=== PATIENT | female | born 1930 | race African-American/Black ===

== ENCOUNTER 2017-03-12 17:55 | Inpatient (IN) ==
[2017-03-12] MEDS ORDERED: ACETAMINOPHEN 325 MG TABLET PO PRN (19:10)
[2017-03-12] MEDS ORDERED: ONDANSETRON 4 MG/2 ML VIAL IV PRN (19:10)
[2017-03-12] MEDS ORDERED: MORPHINE 2 MG/1 ML SYRINGE IV PRN (19:10)
[2017-03-12] MEDS ORDERED: MAGNESIUM HYDROXIDE SUSP 30 ML UDCUP PO PRN (19:10)
[2017-03-12 20:36] LABS: Basophils % 0.4 % (0.0-0.8); Eosinophils # 0.2 10*3/uL (0.0-0.87); Hematocrit 35.1 VOL% (35.7-47.0); Hemoglobin 11.7 GM/DL (12.0-16.0); Immature Granulocytes % 1.2 %; Immature Granulocytes Absolute 0.13 #; Lymphocytes # 2.5 10*3/uL (1.4-4.0); Mean Corpuscular HGB Conc 33.3 GM/DL (32-36); Mean Corpuscular Hemoglobin 30 PG (27-34); Mean Corpuscular Volume 90.7 FL (87-102); Mean Platelet Volume 10.1 FL (9.6-12.0); Monocytes # 1.2 10*3/uL (0.11-0.8); Monocytes % 10.9 % (1.7-12.7); Neutrophils # 6.8 10*3/uL (1.4-7.4); Neutrophils % 62.5 % (38.7-73.9); Platelet Count 372 T/CUMM (130-400); Red Blood Count 3.87 MC/CUMM (3.8-5.5); Red Cell Distribution Width 18.7 % (9.3-17.3); White Blood Count 10.9 T/CUMM (4-12)
[2017-03-12] MEDS: SODIUM CHLORIDE 0.45% 1,000 ML IV SCH (20:47)
[2017-03-12] MEDS: CLINDAMYCIN INJ 600 MG in PREMIX 1 EACH IV SCH (20:51)
[2017-03-12] MEDS: FAMOTIDINE 20 MG TABLET PO SCH (20:52)
[2017-03-12] MEDS: DOCUSATE SODIUM 100 MG CAPSULE PO SCH (20:52)
[2017-03-12] MEDS: MIRTAZAPINE 30 MG TABLET PO SCH (20:52)
[2017-03-12] MEDS: ENOXAPARIN 30 MG/0.3 ML SYRINGE SUBCUT SCH (20:52)
[2017-03-12] MEDS: URSODIOL 300 MG CAPSULE PO SCH (20:52)
[2017-03-12 21:11] LABS: Albumin 2.6 G/DL (3.4-5.0); Bilirubin,Total 0.5 MG/DL (0.2-1.0); Calcium 8.9 MG/DL (8.5-10.1); Osmolality,Calculated 285.2 MOS/KG (273-304); Potassium 4.1 MMOL/L (3.5-5.1); Total Protein 6.3 G/DL (6.4-8.3)
[2017-03-13] MEDS: ALBUTEROL/IPRATROPIUM 3 ML NEB RESP TX SCH ×4 (00:10→19:40)
[2017-03-13] MEDS: CLINDAMYCIN INJ 600 MG in PREMIX 1 EACH IV SCH ×3 (04:05→20:44)
[2017-03-13 05:20] LABS: Apearance,Urine CLEAR (Clear); Bilirubin,Urine Negative (Negative); Blood, Urine Negative (Negative); Glucose,Urine (UA) Negative (Negative); Hyaline Casts,Urine 1 /LPF (0-3); Ketones,Urine Negative (Negative); Nitrite,Urine Negative (Negative); Protein,Urine Negative; RBC,Urine 1 /HPF (0-4); Urine Color Yellow (Yellow); Urine Urobilinogen < 2.0 EU/DL (0.2-1.0); WBC,Urine <1 /HPF (0-6)
[2017-03-13 07:04] LABS: Basophils % 0.4 % (0.0-0.8); Eosinophils # 0.2 10*3/uL (0.0-0.87); Eosinophils % 2.4 % (0.00-10.9); Hematocrit 36.9 VOL% (35.7-47.0); Hemoglobin 12.1 GM/DL (12.0-16.0); Immature Granulocytes % 1.2 %; Immature Granulocytes Absolute 0.09 #; Lymphocytes # 1.9 10*3/uL (1.4-4.0); Lymphocytes % 25.5 % (21.3-54.2); Mean Corpuscular HGB Conc 32.8 GM/DL (32-36); Mean Corpuscular Hemoglobin 30 PG (27-34); Mean Corpuscular Volume 91.8 FL (87-102); Mean Platelet Volume 10.6 FL (9.6-12.0); Monocytes # 0.9 10*3/uL (0.11-0.8); Monocytes % 12.3 % (1.7-12.7); Neutrophils # 4.4 10*3/uL (1.4-7.4); Neutrophils % 58.2 % (38.7-73.9); Platelet Count 242 T/CUMM (130-400); Red Blood Count 4.02 MC/CUMM (3.8-5.5); Red Cell Distribution Width 18.7 % (9.3-17.3); White Blood Count 7.6 T/CUMM (4-12)
[2017-03-13 07:34] LABS: Albumin 2.3 G/DL (3.4-5.0); Bilirubin,Total 0.4 MG/DL (0.2-1.0); Calcium 8.6 MG/DL (8.5-10.1); Osmolality,Calculated 283.2 MOS/KG (273-304); Potassium 3.9 MMOL/L (3.5-5.1); Risk Ratio 15.06; VLDL CHOLESTEROL 41.2 MG/DL
[2017-03-13] MEDS ORDERED: ATORVASTATIN 40 MG TABLET PO SCH (09:00)
[2017-03-13] MEDS: SODIUM CHLORIDE 0.9% 1,000 ML IV SCH (10:30)
[2017-03-13] MEDS: SODIUM CHLORIDE 0.45% 1,000 ML IV SCH (10:31)
[2017-03-13] MEDS: URSODIOL 300 MG CAPSULE PO SCH ×2 (15:09→20:46)
[2017-03-13] MEDS: FAMOTIDINE 20 MG TABLET PO SCH ×2 (15:10→20:46)
[2017-03-13] MEDS: amLODIPine 5 MG TABLET PO SCH (15:10)
[2017-03-13] MEDS: DOCUSATE SODIUM 100 MG CAPSULE PO SCH ×2 (15:10→20:45)
[2017-03-13] MEDS: METOPROLOL TARTRATE 25 MG TABLET PO SCH ×2 (15:12→20:46)
[2017-03-13] MEDS: FENOFIBRATE 160 MG TABLET PO SCH (15:12)
[2017-03-13] MEDS: SODIUM HYPOCHLORITE 0.25% IRRIG 473 ML BOTTLE TOP SCH (16:25)
[2017-03-13] MEDS: MIRTAZAPINE 30 MG TABLET PO SCH (20:46)
[2017-03-13] MEDS: ENOXAPARIN 30 MG/0.3 ML SYRINGE SUBCUT SCH (20:46)
[2017-03-13] MEDS: ROSUVASTATIN 10 MG TABLET PO SCH (20:48)
[2017-03-13] MEDS ORDERED: methylPREDNISolone SOD SUC 40 MG/1 ML VIAL IV ONE (21:42)
[2017-03-13] MEDS ORDERED: FUROSEMIDE 40 MG/4 ML VIAL IV ONE (21:51)
[2017-03-14] MEDS: BUDESONIDE 0.25 MG/2 ML NEB RESP TX SCH ×3 (00:15→19:34)
[2017-03-14] MEDS: ALBUTEROL/IPRATROPIUM 3 ML NEB RESP TX SCH ×4 (00:15→19:34)
[2017-03-14] MEDS: SODIUM CHLORIDE 0.9% 1,000 ML IV SCH ×2 (01:42→23:38)
[2017-03-14] MEDS: CLINDAMYCIN INJ 600 MG in PREMIX 1 EACH IV SCH ×3 (04:01→19:51)
[2017-03-14] MEDS: methylPREDNISolone SOD SUC 40 MG/1 ML VIAL IV SCH ×3 (05:27→21:10)
[2017-03-14 05:52] LABS: Basophils % 0.1 % (0.0-0.8); Hematocrit 33.2 VOL% (35.7-47.0); Hemoglobin 10.9 GM/DL (12.0-16.0); Immature Granulocytes Absolute 0.07 #; Lymphocytes # 1.1 10*3/uL (1.4-4.0); Lymphocytes % 15.3 % (21.3-54.2); Mean Corpuscular HGB Conc 32.8 GM/DL (32-36); Mean Corpuscular Hemoglobin 30 PG (27-34); Mean Corpuscular Volume 91.7 FL (87-102); Mean Platelet Volume 10.3 FL (9.6-12.0); Monocytes # 0.1 10*3/uL (0.11-0.8); Neutrophils # 5.6 10*3/uL (1.4-7.4); Neutrophils % 81.6 % (38.7-73.9); Platelet Count 326 T/CUMM (130-400); Red Blood Count 3.62 MC/CUMM (3.8-5.5); Red Cell Distribution Width 18.9 % (9.3-17.3); White Blood Count 6.9 T/CUMM (4-12)
[2017-03-14 06:22] LABS: Giant Platelets Few; Hypochromasia Slight; Ovalocytes Slight; Platelet Estimate Adequate
[2017-03-14 06:28] LABS: Calcium 7.9 MG/DL (8.5-10.1); Potassium 4.2 MMOL/L (3.5-5.1)
[2017-03-14] MEDS: METOPROLOL TARTRATE 25 MG TABLET PO SCH ×2 (08:42→21:09)
[2017-03-14] MEDS: DOCUSATE SODIUM 100 MG CAPSULE PO SCH ×2 (08:42→21:10)
[2017-03-14] MEDS: amLODIPine 5 MG TABLET PO SCH (08:42)
[2017-03-14] MEDS: URSODIOL 300 MG CAPSULE PO SCH ×2 (08:42→21:09)
[2017-03-14] MEDS: FENOFIBRATE 160 MG TABLET PO SCH (08:42)
[2017-03-14] MEDS: FUROSEMIDE 20 MG/2 ML VIAL IV SCH (08:42)
[2017-03-14] MEDS: FAMOTIDINE 20 MG TABLET PO SCH ×2 (08:42→21:09)
[2017-03-14] MEDS: SODIUM HYPOCHLORITE 0.25% IRRIG 473 ML BOTTLE TOP SCH (14:54)
[2017-03-14] MEDS: SKIN HEALING OINT (AQUAPHOR) 50 GM TUBE TOP SCH (14:54)
[2017-03-14] MEDS: COLLAGENASE OINT 30 GM TUBE TOP SCH (15:21)
[2017-03-14] MEDS: ENOXAPARIN 30 MG/0.3 ML SYRINGE SUBCUT SCH (21:10)
[2017-03-14] MEDS: ROSUVASTATIN 10 MG TABLET PO SCH (21:10)
[2017-03-14] MEDS: MIRTAZAPINE 30 MG TABLET PO SCH (21:12)
[2017-03-15] MEDS: traMADol 50 MG TABLET PO PRN ×2 (00:20→21:18)
[2017-03-15] MEDS: ALBUTEROL/IPRATROPIUM 3 ML NEB RESP TX SCH ×4 (01:00→19:17)
[2017-03-15] MEDS: CLINDAMYCIN INJ 600 MG in PREMIX 1 EACH IV SCH ×2 (03:50→13:26)
[2017-03-15] MEDS: methylPREDNISolone SOD SUC 40 MG/1 ML VIAL IV SCH ×3 (06:50→21:19)
[2017-03-15] MEDS: SODIUM CHLORIDE 0.9% 1,000 ML IV SCH ×2 (06:51→16:41)
[2017-03-15 06:59] LABS: Basophils % 0.1 % (0.0-0.8); Hematocrit 34.5 VOL% (35.7-47.0); Hemoglobin 11.5 GM/DL (12.0-16.0); Immature Granulocytes % 2.3 %; Immature Granulocytes Absolute 0.19 #; Lymphocytes # 1.3 10*3/uL (1.4-4.0); Mean Corpuscular HGB Conc 33.3 GM/DL (32-36); Mean Corpuscular Hemoglobin 30 PG (27-34); Mean Corpuscular Volume 90.8 FL (87-102); Monocytes # 0.5 10*3/uL (0.11-0.8); Monocytes % 6.4 % (1.7-12.7); NRBC # 0.02 10*3/uL; Neutrophils # 6.2 10*3/uL (1.4-7.4); Neutrophils % 75.2 % (38.7-73.9); Platelet Count 324 T/CUMM (130-400); Red Cell Distribution Width 18.6 % (9.3-17.3); White Blood Count 8.3 T/CUMM (4-12)
[2017-03-15] MEDS: BUDESONIDE 0.25 MG/2 ML NEB RESP TX SCH ×2 (07:28→19:17)
[2017-03-15 07:40] LABS: Osmolality,Calculated 293.5 MOS/KG (273-304); Potassium 4.2 MMOL/L (3.5-5.1)
[2017-03-15] MEDS: amLODIPine 5 MG TABLET PO SCH (09:45)
[2017-03-15] MEDS: URSODIOL 300 MG CAPSULE PO SCH ×2 (09:45→21:17)
[2017-03-15] MEDS: FUROSEMIDE 20 MG/2 ML VIAL IV SCH (09:45)
[2017-03-15] MEDS: METOPROLOL TARTRATE 25 MG TABLET PO SCH ×2 (09:45→21:18)
[2017-03-15] MEDS: FAMOTIDINE 20 MG TABLET PO SCH ×2 (09:45→21:18)
[2017-03-15] MEDS: SODIUM HYPOCHLORITE 0.25% IRRIG 473 ML BOTTLE TOP SCH (09:46)
[2017-03-15] MEDS: SKIN HEALING OINT (AQUAPHOR) 50 GM TUBE TOP SCH (09:46)
[2017-03-15] MEDS: DOCUSATE SODIUM 100 MG CAPSULE PO SCH ×2 (09:46→21:17)
[2017-03-15] MEDS: FENOFIBRATE 160 MG TABLET PO SCH (09:46)
[2017-03-15] MEDS: COLLAGENASE OINT 30 GM TUBE TOP SCH (09:49)
[2017-03-15] MEDS ORDERED: cloNIDine 0.1 MG TABLET PO PRN (12:49)
[2017-03-15] MEDS ORDERED: ALBUTEROL 2.5 MG/3 ML NEB RESP TX PRN (12:49)
[2017-03-15] MEDS ORDERED: LUBIPROSTONE 24 MCG CAPSULE PO PRN (12:49)
[2017-03-15] MEDS: hydrALAZINE 25 MG TABLET PO SCH ×2 (14:16→21:18)
[2017-03-15] MEDS ORDERED: CALAMINE LOTION 180 ML BOTTLE TOP SCH (21:00)
[2017-03-15] MEDS: SULFAMETHOX/TRIMETHOPRIM 800-160 MG TABLET PO SCH (21:17)
[2017-03-15] MEDS: GABAPENTIN 100 MG CAPSULE PO SCH ×2 (21:17→21:19)
[2017-03-15] MEDS: ENOXAPARIN 30 MG/0.3 ML SYRINGE SUBCUT SCH (21:17)
[2017-03-15] MEDS: MIRTAZAPINE 30 MG TABLET PO SCH (21:17)
[2017-03-15] MEDS: ROSUVASTATIN 10 MG TABLET PO SCH (21:17)
[2017-03-15] MEDS: CIPROFLOXACIN 500 MG TABLET PO SCH (21:18)
[2017-03-15] MEDS: CALAMINE LOTION 180 ML BOTTLE TOP SCH (21:22)
[2017-03-16] MEDS: ALBUTEROL/IPRATROPIUM 3 ML NEB RESP TX SCH ×4 (00:30→19:50)
[2017-03-16] MEDS: SODIUM CHLORIDE 0.9% 1,000 ML IV SCH ×2 (06:30→19:03)
[2017-03-16] MEDS: methylPREDNISolone SOD SUC 40 MG/1 ML VIAL IV SCH ×3 (06:31→23:00)
[2017-03-16 07:38] LABS: Calcium 8.6 MG/DL (8.5-10.1); Osmolality,Calculated 292.5 MOS/KG (273-304); Potassium 5.3 MMOL/L (3.5-5.1)
[2017-03-16] MEDS: BUDESONIDE 0.25 MG/2 ML NEB RESP TX SCH ×2 (07:45→19:50)
[2017-03-16] MEDS: FUROSEMIDE 20 MG/2 ML VIAL IV SCH (09:43)
[2017-03-16] MEDS: DOCUSATE SODIUM 100 MG CAPSULE PO SCH ×2 (09:44→20:29)
[2017-03-16] MEDS: SULFAMETHOX/TRIMETHOPRIM 800-160 MG TABLET PO SCH ×2 (09:44→20:29)
[2017-03-16] MEDS: FEBUXOSTAT 80 MG TABLET PO SCH (09:44)
[2017-03-16] MEDS: METOPROLOL TARTRATE 25 MG TABLET PO SCH ×2 (09:44→20:29)
[2017-03-16] MEDS: FAMOTIDINE 20 MG TABLET PO SCH ×2 (09:44→20:29)
[2017-03-16] MEDS: FENOFIBRATE 160 MG TABLET PO SCH (09:44)
[2017-03-16] MEDS: ISOSORBIDE MONONITRATE 30 MG TABLET PO SCH (09:44)
[2017-03-16] MEDS: URSODIOL 300 MG CAPSULE PO SCH ×2 (09:44→20:28)
[2017-03-16] MEDS: amLODIPine 5 MG TABLET PO SCH (09:44)
[2017-03-16] MEDS: hydrALAZINE 25 MG TABLET PO SCH ×3 (09:44→20:29)
[2017-03-16] MEDS: GABAPENTIN 100 MG CAPSULE PO SCH ×3 (09:44→20:33)
[2017-03-16] MEDS: PARoxetine 20 MG TABLET PO SCH (09:44)
[2017-03-16] MEDS: MEGESTROL 400 MG/10 ML UDCUP PO SCH (09:45)
[2017-03-16] MEDS: CIPROFLOXACIN 500 MG TABLET PO SCH ×2 (09:45→20:28)
[2017-03-16] MEDS: CALAMINE LOTION 180 ML BOTTLE TOP SCH ×2 (10:05→20:33)
[2017-03-16] MEDS: SKIN HEALING OINT (AQUAPHOR) 50 GM TUBE TOP SCH (16:15)
[2017-03-16] MEDS: COLLAGENASE OINT 30 GM TUBE TOP SCH (16:15)
[2017-03-16] MEDS: SODIUM HYPOCHLORITE 0.25% IRRIG 473 ML BOTTLE TOP SCH (16:15)
[2017-03-16] MEDS: MIRTAZAPINE 30 MG TABLET PO SCH (20:28)
[2017-03-16] MEDS: ROSUVASTATIN 10 MG TABLET PO SCH (20:28)
[2017-03-16] MEDS: traMADol 50 MG TABLET PO PRN (20:29)
[2017-03-16] MEDS: ENOXAPARIN 30 MG/0.3 ML SYRINGE SUBCUT SCH (20:33)
[2017-03-17] MEDS: ALBUTEROL/IPRATROPIUM 3 ML NEB RESP TX SCH ×4 (00:23→20:08)
[2017-03-17] MEDS: SODIUM CHLORIDE 0.9% 1,000 ML IV SCH ×2 (02:38→10:05)
[2017-03-17] MEDS: methylPREDNISolone SOD SUC 40 MG/1 ML VIAL IV SCH ×4 (05:15→23:56)
[2017-03-17] MEDS: BUDESONIDE 0.25 MG/2 ML NEB RESP TX SCH ×2 (07:25→20:08)
[2017-03-17] MEDS: URSODIOL 300 MG CAPSULE PO SCH ×2 (10:05→22:03)
[2017-03-17] MEDS: hydrALAZINE 25 MG TABLET PO SCH ×3 (10:06→22:04)
[2017-03-17] MEDS: CIPROFLOXACIN 500 MG TABLET PO SCH ×2 (10:06→22:03)
[2017-03-17] MEDS: METOPROLOL TARTRATE 25 MG TABLET PO SCH ×2 (10:06→22:04)
[2017-03-17] MEDS: FEBUXOSTAT 80 MG TABLET PO SCH (10:06)
[2017-03-17] MEDS: MEGESTROL 400 MG/10 ML UDCUP PO SCH (10:06)
[2017-03-17] MEDS: ISOSORBIDE MONONITRATE 30 MG TABLET PO SCH (10:06)
[2017-03-17] MEDS: DOCUSATE SODIUM 100 MG CAPSULE PO SCH ×2 (10:06→22:04)
[2017-03-17] MEDS: PARoxetine 20 MG TABLET PO SCH (10:06)
[2017-03-17] MEDS: GABAPENTIN 100 MG CAPSULE PO SCH ×3 (10:06→22:04)
[2017-03-17] MEDS: SULFAMETHOX/TRIMETHOPRIM 800-160 MG TABLET PO SCH ×2 (10:06→22:03)
[2017-03-17] MEDS: FENOFIBRATE 160 MG TABLET PO SCH (10:06)
[2017-03-17] MEDS: amLODIPine 5 MG TABLET PO SCH (10:07)
[2017-03-17] MEDS: SODIUM HYPOCHLORITE 0.25% IRRIG 473 ML BOTTLE TOP SCH (10:07)
[2017-03-17] MEDS: FAMOTIDINE 20 MG TABLET PO SCH ×2 (10:07→22:04)
[2017-03-17] MEDS: CALAMINE LOTION 180 ML BOTTLE TOP SCH ×2 (10:07→23:03)
[2017-03-17] MEDS: FUROSEMIDE 20 MG/2 ML VIAL IV SCH (10:07)
[2017-03-17] MEDS: SKIN HEALING OINT (AQUAPHOR) 50 GM TUBE TOP SCH (10:08)
[2017-03-17] MEDS: ACETIC ACID 0.25% IRRIGATION 1,000 ML BOTTLE IRRIG SCH (13:57)
[2017-03-17] MEDS: COLLAGENASE OINT 30 GM TUBE TOP SCH (13:58)
[2017-03-17] MEDS: ROSUVASTATIN 10 MG TABLET PO SCH (22:03)
[2017-03-17] MEDS: traMADol 50 MG TABLET PO PRN (22:03)
[2017-03-17] MEDS: MIRTAZAPINE 30 MG TABLET PO SCH (22:04)
[2017-03-17] MEDS: ENOXAPARIN 30 MG/0.3 ML SYRINGE SUBCUT SCH (22:10)
[2017-03-18] MEDS: ALBUTEROL/IPRATROPIUM 3 ML NEB RESP TX SCH ×3 (00:29→13:37)
[2017-03-18 07:05] LABS: Basophils % 0.1 % (0.0-0.8); Hemoglobin 11.8 GM/DL (12.0-16.0); Immature Granulocytes % 2.1 %; Immature Granulocytes Absolute 0.33 #; Lymphocytes # 1.6 10*3/uL (1.4-4.0); Mean Corpuscular HGB Conc 32.8 GM/DL (32-36); Mean Corpuscular Hemoglobin 30 PG (27-34); Mean Corpuscular Volume 92.5 FL (87-102); Mean Platelet Volume 10.2 FL (9.6-12.0); Monocytes # 1.3 10*3/uL (0.11-0.8); Monocytes % 8.5 % (1.7-12.7); NRBC # 0.04 10*3/uL; Neutrophils # 12.4 10*3/uL (1.4-7.4); Neutrophils % 79.3 % (38.7-73.9); Platelet Count 346 T/CUMM (130-400); Red Blood Count 3.89 MC/CUMM (3.8-5.5); Red Cell Distribution Width 19.2 % (9.3-17.3); White Blood Count 15.6 T/CUMM (4-12)
[2017-03-18 07:34] LABS: Alanine Aminotransferase 26 U/L (13-56); Albumin 2.4 G/DL (3.4-5.0); Alkaline Phosphatase 129 U/L (45-117); Aspartate Amino Transferase 33 U/L (0-37); Bilirubin,Total < 0.39 MG/DL (0.2-1.0); Blood Urea Nitrogen 42 MG/DL (7-18); Calcium 8.6 MG/DL (8.5-10.1); Glucose 129 MG/DL (74-106); Osmolality,Calculated 289.5 MOS/KG (273-304); Potassium 5.2 MMOL/L (3.5-5.1); Sodium 139 MMOL/L (136-145)
[2017-03-18] MEDS: SODIUM CHLORIDE 0.9% 1,000 ML IV SCH ×2 (08:27→14:45)
[2017-03-18] MEDS: FEBUXOSTAT 80 MG TABLET PO SCH (08:29)
[2017-03-18] MEDS: GABAPENTIN 100 MG CAPSULE PO SCH (08:29)
[2017-03-18] MEDS: SULFAMETHOX/TRIMETHOPRIM 800-160 MG TABLET PO SCH (08:29)
[2017-03-18] MEDS: FENOFIBRATE 160 MG TABLET PO SCH (08:29)
[2017-03-18] MEDS: CIPROFLOXACIN 500 MG TABLET PO SCH (08:29)
[2017-03-18] MEDS: hydrALAZINE 25 MG TABLET PO SCH ×2 (08:29→14:45)
[2017-03-18] MEDS: DOCUSATE SODIUM 100 MG CAPSULE PO SCH (08:29)
[2017-03-18] MEDS: FAMOTIDINE 20 MG TABLET PO SCH (08:29)
[2017-03-18] MEDS: METOPROLOL TARTRATE 25 MG TABLET PO SCH (08:29)
[2017-03-18] MEDS: ISOSORBIDE MONONITRATE 30 MG TABLET PO SCH (08:29)
[2017-03-18] MEDS: PARoxetine 20 MG TABLET PO SCH (08:29)
[2017-03-18] MEDS: URSODIOL 300 MG CAPSULE PO SCH (08:29)
[2017-03-18] MEDS: amLODIPine 5 MG TABLET PO SCH (08:29)
[2017-03-18] MEDS: SKIN HEALING OINT (AQUAPHOR) 50 GM TUBE TOP SCH (08:30)
[2017-03-18] MEDS: ACETIC ACID 0.25% IRRIGATION 1,000 ML BOTTLE IRRIG SCH (08:30)
[2017-03-18] MEDS: FUROSEMIDE 20 MG/2 ML VIAL IV SCH (08:30)
[2017-03-18] MEDS: COLLAGENASE OINT 30 GM TUBE TOP SCH (08:30)
[2017-03-18] MEDS: CALAMINE LOTION 180 ML BOTTLE TOP SCH (08:30)
[2017-03-18] MEDS: SODIUM HYPOCHLORITE 0.25% IRRIG 473 ML BOTTLE TOP SCH (08:30)
[2017-03-18] MEDS: MEGESTROL 400 MG/10 ML UDCUP PO SCH (08:31)
[2017-03-18 12:57] VITALS: BP 131/64
[2017-03-18] MEDS ORDERED: LINEZOLID 600 MG TABLET PO SCH (21:00)
[2017-03-19] MEDS ORDERED: LEVOFLOXACIN 500 MG TABLET PO SCH (09:00)
== END 2017-03-18 17:25 | DRG 920 ==
LOC: N.5E 18:42
PROVIDERS: ADMIT Internal Medicine; ATTEND Internal Medicine